=== PATIENT | female | born 1950 | race Caucasian/White ===

== ENCOUNTER 2019-06-12 11:58 | Outpatient (CLI) | payer MEDICARE, OTHER, SELFPAY ==
[2019-06-12 13:15] LABS: Abs Immature Grans 0.01 k/cumm (0.0-0.09); Absolute Basophil Count 0.01 k/cumm (0.0-0.2); Absolute Eosinophil Count 0.11 k/cumm (0.0-0.7); Absolute Lymphocyte Count 1.71 k/cumm (1.2-3.4); Absolute Monocyte Count 0.54 k/cumm (0.11-0.7); Absolute Neutrophil Count 3.24 k/cumm (1.2-6.7); Basophils % 0.2; HCT 39.9 % (36.0-46.0); HGB 13.5 g/dL (12.0-15.5); Immature Grans % 0.2; Lymphocytes % 30.4; Mean Corp. HGB Concentration 33.8 g/dL (32.0-36.0); Mean Corpuscular Hemoglobin 31.3 pg (27.0-33.0); Mean Corpuscular Volume 92.6 fL (80-95); Mean Platelet Volume 9.8 fL (8.0-11.0); Monocytes % 9.6; Neutrophils % 57.6; Platelet Count 285 x1000/uL (130-400); RBC 4.31 m/cumm (4.00-5.20); White Blood Cell Count 5.62 k/cumm (4.4-10.8)
[2019-06-12 13:39] LABS: ALT 33 U/L (12-78); AST 21 U/L (15-37); Albumin 3.6 g/dL (3.4-5.0); Alkaline Phosphatase 52 U/L (46-116); Anion Gap 7.6 mmol/L (3-11); BUN 10 mg/dL (7-18); Bilirubin, Total 0.3 mg/dL (0.2-1.0); CO2 28.4 mmol/L (21.0-32.0); CREATININE 0.71 mg/dL (0.55-1.02); Calcium 8.8 mg/dL (8.5-10.1); Chloride 106 mmol/L (98-107); Glucose 100 mg/dL (70-100); Potassium 4.2 mmol/L (3.5-5.1); Sodium 142 mmol/L (136-145); TSH 0.48 uIU/mL (0.36-3.74); Total Protein 6.3 g/dL (6.4-8.2)
[2019-06-12 14:11] LABS: ESR 4 mm/hr (0-30)
[2019-06-12 20:14] LABS: CRP, High Sensitivity 1.33 mg/L
== END 2019-06-12 12:18 ==
PROVIDERS: Nurse Practitioner Family; PCP Family Medicine; Visit Provider Family Medicine
DX: M35.3 Polymyalgia rheumatica (principal); E03.9 Hypothyroidism, unspecified; L98.9 Disorder of the skin and subcutaneous tissue, unspecified
CPT/HCPCS: 36415; 80053; 85652; 86141; 84443; 85025

== ENCOUNTER 2020-11-27 05:01 | Outpatient (CLI) | payer MEDICARE, SELFPAY ==
[2020-11-27 09:31] LABS: Abs Immature Grans 0.01 10^3/uL (0.0-0.06); Absolute Basophil Count 0.02 10^3/uL (0.0-0.2); Absolute Eosinophil Count 0.12 10^3/uL (0.0-0.7); Absolute Lymphocyte Count 1.57 10^3/uL (1.2-3.4); Absolute Monocyte Count 0.54 10^3/uL (0.1-0.8); Absolute Neutrophil Count 2.81 10^3/uL (1.2-6.7); Basophils % 0.4; Eosinophils % 2.4; HCT 42.4 % (36.0-46.0); Immature Grans % 0.2; MCH 30.7 pg (27.0-33.0); MPV 8.9 fL (8.0-11.0); Monocytes % 10.7; Neutrophils % 55.3; Nucleated RBC 0 %; Platelet Count 307 10^3/uL (130-400); RBC 4.56 10^6/uL (3.93-5.22); RDW 11.3 % (11.7-14.6); RDW-SD 38.6 fL; WBC 5.07 10^3/uL (4.4-10.8)
[2020-11-27 10:24] LABS: ALT 39 U/L (14-59); AST 26 U/L (15-37); Albumin 3.8 g/dL (3.4-5.0); Alkaline Phosphatase 66 U/L (46-116); Anion Gap 7.4 mmol/L (3-11); BUN 19 mg/dL (7-18); Bilirubin, Total 0.5 mg/dL (0.2-1.0); CO2 29.6 mmol/L (21.0-32.0); CREATININE 0.68 mg/dL (0.55-1.02); Calcium 9.3 mg/dL (8.5-10.1); Chloride 101 mmol/L (98-107); Glucose 95 mg/dL (74-106); Potassium 4.3 mmol/L (3.5-5.1); Sodium 138 mmol/L (136-145); TSH 2.14 uIU/mL (0.36-3.74); Total Protein 6.7 g/dL (6.4-8.2)
== END 2020-11-27 05:21 ==
PROVIDERS: PCP Family Medicine; Visit Provider Family Medicine
DX: E03.9 Hypothyroidism, unspecified (principal); M06.00 Rheumatoid arthritis without rheumatoid factor, unspecified site
CPT/HCPCS: 36415; 80053; 84443; 85025

== ENCOUNTER 2021-02-03 00:31 | Outpatient (CLI) | payer MEDICARE, OTHER, SELFPAY ==
--- NOTE | 2021-02-03 07:00 | DI.NM_ITS ---
APPROVED REPORT Exam: Pharmacologic stress paired with low level exercise Patient Location: Out-Patient Room/Bed: Stress Nurse: Bella Tinajero RN Ordering Provider:JING MONAHAN, Contact Number: [phone] BMI: 0 Stress Test Details Test: Pharmacologic stress was paired with low level exercise. Reason for pharmacologic stress test: LBBB. Nuclear Acquisition: Rest Tc-99m/Stress Tc-99m 1 day Rest Isotope: Tc-99m Sestamibi. Dose: 10.2 Date: 02/03/21 Injection Time: 0920 Stress Isotope: Tc-99m Sestamibi. Dose: 32.5 Date: 02/03/21 Injection Time: 1125 HR Resting HR Supine: 59 bpm Max Heart Rate (APMHR): 148 bpm Resting HR Standin bpm Target HR (85% APMHR): 125 bpm Max HR Achieved: 125 bpm % of APMHR: 84 Recovery HR: 81 bpm BP Resting BP Supine: 142/72 mmHg Resting BP Standin/76 mmHg Max BP: 150/70 mmHg Recovery BP: 148/72 mmHg ECG Resting ECG: Sinus Bradycardia, LBBB Ectopy: None Stress ECG: Sinus Tachycardia, LBBB ST Change: No significant ST segment changes noted Arrhythmia: None Recovery ECG: Sinus Rhythm, LBBB Recovery ST Change: No significant ST segment changes noted Clinical Rate Pressure Product: [id number] Stress ECG Conclusion 1. The resting electrocardiogram showed a left bundle branch block 2. The patient underwent pharmacologic stress with regadenoson, as well as slow [facility] 3. Electrocardiographically the test was nondiagnostic due to an abnormal resting electrocardiogram ( LBBB) 4. There were no dysrhythmias Stress Test Summary STAGE HR BP Symptoms NOTES Supine 59 142/72 1 min post Lexiscan injection 113 150/70 lightheaded 3 min post Lexiscan injection 88 146/68 symptoms resolved 6 min post Lexiscan injection 81 148/72 Standing 69 138/76 Lexiscan injection paired with low level of exercise (1.5mph on treadmill). MPI Conclusion There is normal myocardial perfusion, without evidence of ischemia or prior infarction Radiologist Interpretation Radiologist agrees with Method Consultant's Interpretation. Radiologist Interpretation by: Desmond Collier MD Interpretation Date/Time: 02/04/2021 14:19:59
[2021-02-03] MEDS: Regadenoson 0.4 MG/5 ML SYR IVP (11:50)
== END 2021-02-03 00:51 ==
PROVIDERS: PCP Family Medicine; Visit Provider Family Medicine
DX: R06.09 Other forms of dyspnea (principal); I44.7 Left bundle-branch block, unspecified
CPT/HCPCS: 78452; 93016; 93018; 93017; J2785

== ENCOUNTER → 2021-04-25 10:24 | Outpatient (BNVA) | payer MEDICARE, OTHER, SELFPAY | PROVIDERS: PCP Family Medicine; Referring Provider Family Medicine; Visit Provider Physical Therapy Assistant | DX: Z12.11 Encounter for screening for malignant neoplasm of colon (principal) ==

== ENCOUNTER 2021-05-19 07:13 | Day surgery (SDC) | payer MEDICARE, OTHER, SELFPAY ==
--- NOTE | 2021-05-19 06:42 | W.COLOREPORT ---
Date of service: 05/19/21 Time of Service: 08:37 Colonoscopy Report Date of procedure: 05/19/21 Pre-op diagnosis general: Colon Cancer Screening Post-op diagnosis procedure note: same Procedure: Colonoscopy Surgeon: Tiki Bailey Anesthesia Type: General:No Airway (ASA 2/Joyce Mderano, KATIE) Estimated blood loss (mL): 0 Pathology: none sent Complications: None Disposition: same day Indications: The patient is here for Colonoscopy pre-op. Her last screening was in 2010 and was unremarkable. She has no family history of colon cancer. She has not had any bowel habit changes. -Discussed colonoscopy bowel prep as well as the procedure. Discussed possible complications of the procedure to include bleeding, pain, perforation, missed small lesion/polyp, sore throat, aspiration and adverse reaction to the medications. Questions were answered to patient?s satisfaction. No guarantees were implied or given. Prep: Miralax/Dulcolax Procedure Start Time: 08:37 Procedure End Time: 08:55 Retraction Time: 8 minutes Findings: Normal colon Procedure Description: After informed consent was obtained the patient was taken to the procedure room and placed in a left decubitous position. Monitors were applied and a time out was done. The patients name, date of , procedure, allergies to medications and metal in their body was reviewed. The patient was then sedated. Once sedated and comfortable a rectal exam was done. External exam was normal. Internal exam revealed a normal sphincter tone and no palpable masses. The scope was then introduced and retro-flexed. No internal hemorrhoids, polyps or masses were identified on retro-flexion. The scope was then advanced to the cecum without difficulty. The ileocecal vlave and appendiceal orifice were identified. The prep was good. The scope was then slowly retracted over 8 minutes back into the rectum. There were no polyps identified. There was no diverticulosis noted. The scope was removed and the patient was woken up and taken back to Same day surgery in stable condition. The patient tolerated the procedure well and there were no immediate complications. Follow up: The patient should follow up as needed if they develop changes in bowel habits or other new gastrointestinal complaints.
--- NOTE | 2021-05-19 06:43 | W.PM.DSUDISC ---
Discharge Plan Disposition Patient Disposition: HOME Condition: Good Discharge Details Reason For Visit: Colonoscopy Attending Provider: Tiki Bailey Primary Care Provider: Paola Webster Home Meds and New Rx's Prescriptions: Continued magnesium glycinate 100 mg tablet 100 mg PO QHS PRNRF: 0 amitriptyline 10 mg tablet 5 - 10 mg PO HS PRN (Reason: insomnia) Qty: 30 RF: 12 timolol maleate 0.25 % drops 1 drp ophthalmic (eye) BID Qty: 5 RF: 0 vitamin B complex 1 EACH tablet 1 ea PO DAILY RF: 0 multivitamin 1 EACH capsule 1 ea PO DAILY RF: 0 omega-3 fatty acids-fish oil 1 EACH capsule 1 ea PO daily prn RF: 0 cholecalciferol (vitamin D3) 2,000 UNIT tablet 2,000 unit PO DAILY RF: 0 TUMERIC 500 mg PO DAILY RF: 0 hydroxychloroquine [Plaquenil] 200 MG tablet 300 mg PO DAILY Qty: 1.5 RF: 0 calcium carbonate 600 MG tablet 2,000 mg PO DAILY RF: 0 levothyroxine 100 mcg tablet 100 mcg PO DAILY Qty: 90 RF: 1 raloxifene [Evista] 60 mg tablet 60 mg PO DAILY Qty: 30 RF: 12 Discontinued bisacodyl [Dulcolax (bisacodyl)] 5 mg tablet,delayed release (DR/EC) 5 mg PO ONCE Qty: 4 RF: 0 polyethylene glycol 3350 17 gram/dose powder 238 g PO ONCE Qty: 238 RF: 0 Discharge Instructions Additional Instructions: Findings:Normal colonoscopy Follow up: as needed Please call if you develop: fevers >101.5 Nausea or Vomiting Abdominal pain that is not transient Rectal bleeding that is more then a tbsp A hard abdomen and inability to pass gas DAY SURGERY UNIT POST ENDOSCOPY INSTRUCTIONS Instructions for everyone who is given Anesthesia: For your safety, please do the following for the next 24 Hours: a. Do not drive or operate dangerous equipment b. Do not drink alcohol beverages or use any recreational drugs for the first 24 hours or while taking pain medications. The medications in your body may have a reaction that can be dangerous. c. Do not make any important decisions or sign any important papers 1. Generally there are no restrictions on your activity after a day or so has gone by, but you may feel a bit fatigued for a few days. 2. After you arrive home you may have a light meal and return to a normal diet as you can tolerate it without feeling sick to your stomach. 3. After surgery, you may feel pain or discomfort. This should be only transient, but if it persists please contact your doctor. 4. If there are any questions regarding the findings of your procedure, please feel free to contact your doctor. 6. If you are unable to contact your doctor with a problem, contact the hospital at [phone]. 7. Continue all your regular medications unless directed otherwise. I understand the above instructions and have no questions. Signature of Patient or Responsible Adult Escort Date/Time Name of Responsible Adult Escort Signature of Nurse Date/Time Activity:: Activity as Tolerated Diet:: As Tolerated Discharge Orders Discharge Orders: Discharge Order (Routine); Ordered 05/19/21 Ordered By: Tiki Bailey
[2021-05-19 07:23] VITALS: BP 127/54; PULSE 59; RESP 16; TEMP 36.6; O2SAT 100
--- NOTE | 2021-05-19 07:43 | ANES.PREOP_ITS ---
General Info Date of Service Date Performed: 05/19/21 Height: 5 ft 3.39 in Weight: 50.9 kg Body Mass Index (BMI): 19.6 Surgical Procedure: Operation Date: 05/19/21 08:35 Proposed Procedures Side Surgeon p Colonoscopy Tiki Bailey MD Meds Allergies and Home Medications Allergies Allergy/AdvReac Type Severity Reaction Status Date / Time No Known Allergies Allergy Unverified 04/25/21 10:28 Home Medication Medication Instructions Recorded multivitamin 1 ea PO DAILY 06/20/13 omega-3 fatty acids-fish oil 1 ea PO daily prn 06/20/13 vitamin B complex 1 ea PO DAILY 06/20/13 Tumeric 500 mg PO DAILY 06/08/16 cholecalciferol (vitamin D3) 2,000 unit PO DAILY 06/08/16 hydroxychloroquine [Plaquenil] 300 mg PO DAILY #1.5 tab-cap 06/07/17 calcium carbonate 2,000 mg PO DAILY 01/05/18 magnesium glycinate 100 mg tablet 100 mg PO QHS PRN tab 02/08/19 amitriptyline 10 mg tablet 5 - 10 mg PO HS PRN #30 tab-cap 01/15/21 timolol maleate 0.25 % eye drops 1 drp OPHTHALMIC (EYE) BID #5 ml 01/15/21 levothyroxine 100 mcg tablet 100 mcg PO DAILY #90 tab-cap 04/02/21 bisacodyl 5 mg tablet,delayed 5 mg PO ONCE #4 tab 04/25/21 release polyethylene glycol 3350 17 238 g PO ONCE #238 g 04/25/21 gram/dose oral powder raloxifene 60 mg tablet 60 mg PO DAILY #30 tab-cap 05/05/21 Current Visit Medications: Current Medications Generic Name Dose Route Start Last Admin Trade Name Freq PRN Reason Stop Dose Admin Hyoscyamine Sulfate 0.125 mg 05/19/21 06:43 Hyoscyamine 0.125 Mg Sl/Oral/Chew SL DIRECTED PRN Ringer's Solution 1,000 mls @ 80 mls/hr 05/19/21 06:00 IV 06/15/21 23:59 INFUSION JOSE IV Miscellaneous Supplies 1 each 05/19/21 06:00 Iv Access IV 06/15/21 23:59 DIRECTED JOSE Ondansetron HCl 4 mg 06/28/21 06:43 Ondansetron 4 Mg/2 Ml Vial IVP Q4H PRN PRN Nausea / Vomiting Sodium Chloride 0 ml 05/19/21 06:00 Normal Saline Flush 10 Ml Syr IV 06/15/21 23:59 PRN PRN Sodium Chloride 0 ml 05/19/21 06:00 Normal Saline 10 Ml Vial IJ 06/15/21 23:59 DIRECTED PRN Sterile Water 0 ml 05/19/21 06:00 Water,Injection,Sterile 10 Ml Vial IJ 06/15/21 23:59 DIRECTED PRN PFSH Active Problems Active Problems: Problem Status Onset Code Hypothyroidism 06/21/13 E03.9 Polymyalgia rheumatica 01/09/13 M35.3 Osteoporosis 06/08/16 M81.0 Meniere's disease H81.09 Rheumatoid arthritis with negative rheumatoid factor M06.00 Contact dermatitis L25.9 Sensorineural hearing loss 04/28/16 H90.5 Osteopenia M85.80 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 Styles 2016: Prednisone (Methotrexate d/c no result Leflunomide d/c elevated LFTs) Post-operative nausea and vomiting Rheumatoid arthritis with negative rheumatoid factor Surgical History Surgical History History of colonoscopy Tobacco Smoking/Tobacco Use Status: Never Second hand exposure: Yes Alcohol Alcohol Intake: never Substance Use Substance use: Never Substance use type: does not use Vital Signs and Lab Results Vital Signs Most Recent Vital Signs in EMR: Most Recent Vital Signs Temp Pulse Resp BP Pulse Ox 36.6 C 59 L 16 127/54 L 100 05/19/21 07:23 05/19/21 07:23 05/19/21 07:23 05/19/21 07:23 05/19/21 07:23 Lab Results Blood Type / Crossmatch: No Data to Display Complete Blood Count: No Data to Display Complete Metabolic Panel: No Data to Display Liver Function Panel: No Data to Display Coagulation Panel: No Data to Display Cardiac Panel: No Data to Display Arterial Blood Gas: No Data to Display Venous Blood Gas: No Data to Display Pancreas Panel: No Data to Display Thyroid Panel: No Data to Display Infectious Disease: No Data to Display Blood Cultures: No Data to Display Toxicology Panel: No Data to Display Imaging and Studies Imaging and Studies Stress Test Summary: Stress ECG Conclusion 1. The resting electrocardiogram showed a left bundle branch block 2. The patient underwent pharmacologic stress with regadenoson, as well as slow ambulation on the treadmill 3. Electrocardiographically the test was nondiagnostic due to an abnormal resting electrocardiogram (LBBB) 4. There were no dysrhythmias 02/09 Echocardiogram Summary: Summary: 1. Left ventricle: The cavity size was normal. Wall thickness was normal. Systolic function was normal. The estimated ejection fraction was 60-65%. Wall motion was normal; there were no regional wall motion abnormalities. Left ventricular diastolic function parameters were normal. 2. Mitral valve: Mild regurgitation. 3. Right ventricle: The cavity size was normal. Wall thickness was normal. Systolic function was normal. 4. Pulmonary arteries: Pulmonary systolic pressure was in the range of 15mm Hg to 25mm Hg. 5. Inferior vena cava: The vessel was normal in size; the respirophasic diameter changes were in the normal range (greater than or equal to 50%); findings are consistent with normal central venous pressure.02/09 Anesthesia Assessment and Plan Anesthesia History Personal History: No History of Anesthesia Complications Family History: No Family History of Anesthesia Complications Exercise Tolerance Exercise Tolerance: Metabolic Equivalents<4 Pertinent Negatives Pertinent Negatives: No Symptoms of GERD, No Major Cardiovascular Symptoms or Complaints and No Major Pulmonary Symptoms or Complaints Cardiac & Pulmonary Exam Cardiac Exam: Normal S1/S2 Heart Sounds Pulmonary Exam: Clear Bilateral Breath Sounds Cardiac and Pulmonary Comment:: Echo and stress rest essentially negative Airway Exam Known Difficult Airway: No Mallampati Class: 2 Mouth Opening: Normal (> 3cm) Thyromental Distance: Greater than 3 cm Neck Range of Motion: Full ROM Neck Circumference: Normal Teeth Condition: Normal Dentition ASA Classification ASA Score: ASA 2 Emergency Case?: No NPO Status NPO Status: NPO Clears >2 hours, Solids >8 hours Anesthesia Plan Resuscitation Status: Full Code Anesthesia Technique: MAC Anesthesia Airway Planned: Natural Airway Monitors Used: Standard Monitors
[2021-05-19] MEDS: Lactated Ringers 1,000 ML 80 ML IV (08:02)
[2021-05-19 08:21] VITALS: BMI 19.6
[2021-05-19 09:08] VITALS: BP 93/45; PULSE 53; RESP 15; TEMP 36.5; O2SAT 98
--- NOTE | 2021-05-19 09:08 | W.ANESPOSTOP ---
Postoperative Evaluation Date, Time and Location Date Performed: 05/19/21 Time Performed: 09:08 Patient Location: Day Surgery Unit Vital Signs Most Recent Imported Vital Signs: Most Recent Vital Signs Temp Pulse Resp BP Pulse Ox 36.6 C 59 L 16 127/54 L 100 05/19/21 07:23 05/19/21 07:23 05/19/21 07:23 05/19/21 07:23 05/19/21 07:23 Most Recent Manually Entered Vital Signs: Adult Blood Pressure: 93/45 Heart Rate: 53 Respirations: 15 Oxygen Saturation (%): 98 Temperature (C): 36.5 C Pain Score (0-10 Scale): 0 Pain Score Most Recent Pain Score: Most Recent Pain Score Pain Level 0 05/19/21 07:23 Assessment Mental Status: Awake (Alert & Oriented to Patient Baseline) Airway and Respiratory Function: Patent airway with normal (patient baseline) respiratory exam Cardiovascular Function: Hemodynamically Stable Hydration Status: Adequately Hydrated Nausea & Vomiting: No Nausea or Vomiting Pain: Pt. Denies Any Pain Peripheral Nerve Block: Patient did not receive a nerve block
[2021-05-19 09:11] VITALS: PULSE 53; RESP 15; TEMPC 36.5; O2SAT 98
[2021-05-19 09:12] VITALS: BP 93/45
[2021-05-19 09:39] VITALS: BP 93/45; PULSE 53; RESP 15; TEMP 36.5; O2SAT 98
== END 2021-05-19 09:50 | disposition home or self-care (01) ==
LOC: SUR 07:13
PROVIDERS: PCP Family Medicine; Visit Provider Surgery
PROC: 0DJD8ZZ Inspection of Lower Intestinal Tract, Via Natural or Artificial Opening Endoscopic (ICD-10-PCS; CPT 45378; principal; 2021-05-19 08:30)
DX: Z12.11 Encounter for screening for malignant neoplasm of colon (principal)
CPT/HCPCS: G0121

== ENCOUNTER 2022-04-09 09:26 | Outpatient (CLI) | payer MEDICARE, OTHER, SELFPAY ==
[2022-04-09 12:25] VITALS: BP 140/66; PULSE 75; RESP 16; TEMP 36.9; O2SAT 100
[2022-04-09 13:28] VITALS: BP 143/62; PULSE 62; RESP 12; TEMP 36.9; O2SAT 98
== END 2022-04-09 09:27 | disposition home or self-care (01) ==
LOC: INF 09:31
PROVIDERS: PCP Family Medicine; Visit Provider Family Medicine
DX: U07.1 COVID-19 (principal)
CPT/HCPCS: 96374; Q0222

== ENCOUNTER 2022-08-14 00:44 | Outpatient (CLI) | payer MEDICARE, OTHER, SELFPAY ==
[2022-08-14 13:00] LABS: Abs Immature Grans 0.01 10^3/uL (0.0-0.06); Absolute Basophil Count 0.04 10^3/uL (0.0-0.2); Absolute Eosinophil Count 0.11 10^3/uL (0.0-0.7); Absolute Lymphocyte Count 1.65 10^3/uL (1.2-3.4); Absolute Monocyte Count 0.42 10^3/uL (0.1-0.8); Absolute Neutrophil Count 2.96 10^3/uL (1.2-6.7); Basophils % 0.8; Eosinophils % 2.1; HCT 42.6 % (36.0-46.0); HGB 14.3 g/dL (11.2-15.7); Immature Grans % 0.2; Lymphocytes % 31.8; MCH 30.6 pg (27.0-33.0); MCHC 33.6 % (32.0-36.0); MCV 91 fL (80-95); MPV 9.6 fL (8.0-11.0); Monocytes % 8.1; Platelet Count 300 10^3/uL (130-400); RBC 4.67 10^6/uL (3.93-5.22); RDW 12.1 % (11.7-14.6); RDW-SD 40.8 fL; WBC 5.19 10^3/uL (4.4-10.8)
[2022-08-14 13:29] LABS: ALT 39 U/L (14-59); AST 30 U/L (15-37); Albumin 3.9 g/dL (3.4-5.0); Alkaline Phosphatase 58 U/L (46-116); Anion Gap 6.8 mmol/L (3-11); BUN 19 mg/dL (7-18); Bilirubin, Total 0.4 mg/dL (0.2-1.0); CO2 30.2 mmol/L (21.0-32.0); CREATININE 0.7 mg/dL (0.55-1.02); Calcium 9.2 mg/dL (8.5-10.1); Calculated LDL 58 mg/dL (<100); Chloride 101 mmol/L (98-107); Cholesterol 157 mg/dL (<200); Estimated GFR 91.26 (mL/min/1.73m2); Glucose 92 mg/dL (74-106); HDL Cholesterol 90 mg/dL (40-60); Potassium 4.4 mmol/L (3.5-5.1); Sodium 138 mmol/L (136-145); TSH (W/Ref FT4) 1.78 uIU/mL (0.36-3.74); Total Protein 7.1 g/dL (6.4-8.2); Triglyceride 48 mg/dL (<150)
== END 2022-08-14 00:45 | disposition home or self-care (01) ==
LOC: LOS 00:44
PROVIDERS: PCP Family Medicine; Visit Provider Family Medicine
DX: E03.9 Hypothyroidism, unspecified (principal); Z13.6 Encounter for screening for cardiovascular disorders; M06.00 Rheumatoid arthritis without rheumatoid factor, unspecified site; Z00.00 Encounter for general adult medical examination without abnormal findings
CPT/HCPCS: 36415; 80053; 80061; 84443; 85025

== ENCOUNTER 2023-08-27 02:37 | Outpatient (CLI) | payer MEDICARE, OTHER, SELFPAY | END 2023-08-27 02:38 | disposition home or self-care (01) | LOC: LBO 02:37 | PROVIDERS: PCP Family Medicine; Visit Provider Family Medicine | DX: E03.9 Hypothyroidism, unspecified (principal) | CPT/HCPCS: 36415; 84443 ==

== ENCOUNTER 2024-08-29 03:14 | Outpatient (CLI) | payer MEDICARE, OTHER, SELFPAY ==
[2024-08-29 13:48] LABS: Abs Immature Grans 0.02 10^3/uL (0.0-0.06); Absolute Basophil Count 0.03 10^3/uL (0.0-0.2); Absolute Eosinophil Count 0.09 10^3/uL (0.0-0.7); Absolute Lymphocyte Count 1.67 10^3/uL (1.2-3.4); Absolute Monocyte Count 0.49 10^3/uL (0.1-0.8); Basophils % 0.6 %; Eosinophils % 1.7 %; HCT 41.8 % (36.0-46.0); HGB 14.2 g/dL (11.2-15.7); Immature Grans % 0.4 %; Lymphocytes % 32.1 %; MCH 31.2 pg (27.0-33.0); MCV 92 fL (80-95); MPV 8.9 fL (8.0-11.0); Monocytes % 9.4 %; Neutrophils % 55.8 %; Platelet Count 279 10^3/uL (130-400); RBC 4.55 10^6/uL (3.93-5.22); RDW 11.4 % (11.7-14.6); RDW-SD 38.7 fL
[2024-08-29 13:51] LABS: ESR < 1 mm/hr (0-30)
[2024-08-29 14:03] LABS: C-Reactive Protein < 0.50 mg/dL (<or=0.5)
[2024-08-29 14:33] LABS: ALT 41 U/L (14-59); AST 22 U/L (15-37); Albumin 3.8 g/dL (3.4-5.0); Alkaline Phosphatase 69 U/L (46-116); Anion Gap 6.5 mmol/L (3-11); BUN 15 mg/dL (7-18); Bilirubin, Total 0.54 mg/dL (0.2-1.0); CO2 30.5 mmol/L (21.0-32.0); CREATININE 0.8 mg/dL (0.55-1.02); Calcium 9.2 mg/dL (8.5-10.1); Chloride 103 mmol/L (98-107); Estimated GFR 76.79 (mL/min/1.73m2); Glucose 93 mg/dL (74-106); Potassium 4.6 mmol/L (3.5-5.1); Sodium 140 mmol/L (136-145); TSH (W/Ref FT4) 1.55 uIU/mL (0.36-3.74); Total Protein 6.8 g/dL (6.4-8.2); Vitamin B12 1131 pg/mL (193-986)
== END 2024-08-29 03:15 | disposition home or self-care (01) ==
LOC: LBO 03:14
PROVIDERS: PCP Family Medicine; Visit Provider Family Medicine
DX: G31.84 Mild cognitive impairment of uncertain or unknown etiology; E03.9 Hypothyroidism, unspecified; M06.00 Rheumatoid arthritis without rheumatoid factor, unspecified site
CPT/HCPCS: 36415; 80053; 85652; 82607; 84443; 85025; 86140

== ENCOUNTER 2024-09-25 01:21 | Outpatient (CLI) | payer MEDICARE, OTHER, SELFPAY ==
--- NOTE | 2024-09-25 | DI.DEXA_ITS ---
Exam(s) XR DEXA BONE DENSITY W/WO ROBERT EXAM: XR DEXA BONE DENSITY W/WO ROBERT CLINICAL HISTORY: OSTEOPOROSIS, UNSPECIFIED PATHOLOGICAL FRACTURE PRESENCE, M81.0 TECHNIQUE: COMPARISON: CR XR LUMBAR SPINE AP, LAT from 08/08/2020 FINDINGS: Lateral Spine Image: There is again seen anterolisthesis of L4 on L5. No compression deformities are seen on the single lateral image of the spine. Left hip: Total T-Score: -1.5 Total Z-Score: 0.3 T- and Z-scores: Findings are consistent with osteopenia. Lumbar Spine: Total T-Score: -0.2 Total Z-Score: 2.3 T- and Z-scores: Within normal limits. IMPRESSION: No evidence of osteoporosis.
== END 2024-09-25 01:41 ==
LOC: DI 01:21
PROVIDERS: PCP Family Medicine; Visit Provider Internal Medicine
DX: M81.0 Age-related osteoporosis without current pathological fracture (principal)
CPT/HCPCS: 77080

== ENCOUNTER → 2024-10-05 14:28 | Outpatient (BNVA) | payer MEDICARE, OTHER, SELFPAY | PROVIDERS: PCP Family Medicine; Referring Provider Family Medicine; Visit Provider Nurse Practitioner Adult Health | DX: G31.84 Mild cognitive impairment of uncertain or unknown etiology (principal) | CPT/HCPCS: 99205; G2212 ==

== ENCOUNTER 2025-02-08 01:00 | Outpatient (CLI) | payer MEDICARE, OTHER, SELFPAY ==
--- NOTE | 2025-02-08 07:30 | DI.RAD_ITS ---
Exam(s) XR FOOT RT COMPLETE EXAM: XR FOOT RT COMPLETE CLINICAL HISTORY: right foot pain,m79.671. TECHNIQUE: 2D digital imaging was performed. Three views. COMPARISON: CR XR FOOT LT COMPLETE from 02/08/2025 FINDINGS: BONES: No acute fracture is present. No bony destructive lesion is seen. Spurring at the Achilles in sertion on the calcaneus. JOINTS: No dislocation present. Mild spurring at the talonavicular joint. Mild degenerative changes of the 1st MTP joint and 1st metatarsal sesamoids. SOFT TISSUE: Normal. IMPRESSION: Unre mild degenerative changes and calcaneal enthesophyte. DATA REPOSITORY: RADIATION DOSE DELIVERED:
--- NOTE | 2025-02-08 07:30 | DI.RAD_ITS ---
Exam(s) XR FOOT LT COMPLETE EXAM: XR FOOT LT COMPLETE CLINICAL HISTORY: Left foot pain,m79.672. TECHNIQUE: 2D digital imaging was performed of the left foot. Three images were obtained. AP, obli que and lateral views were obtained. COMPARISON: There are no priors for comparison. FINDINGS: BONES: No acute fracture is present. No bony destructive lesion is seen. There is a enthesophyte at t he posterior calcaneus. JOINTS: No dislocation present. There is a mild hallux valgus deformity. The joint spaces are well m aintained. SOFT TISSUE: Normal. IMPRESSION: Mild hallux valgus deformity and calcaneal spur. DATA REPOSITORY: RADIATION DOSE DELIVERED:
== END 2025-02-08 01:20 ==
LOC: DI 01:00
PROVIDERS: PCP Family Medicine; Visit Provider Podiatrist
DX: M79.671 Pain in right foot (principal); M79.672 Pain in left foot; M20.12 Hallux valgus (acquired), left foot; M20.11 Hallux valgus (acquired), right foot; M77.32 Calcaneal spur, left foot; M77.31 Calcaneal spur, right foot; M77.42 Metatarsalgia, left foot; B07.0 Plantar wart; M67.01 Short Achilles tendon (acquired), right ankle; M67.02 Short Achilles tendon (acquired), left ankle
CPT/HCPCS: 17110; 29540; 99214; 73630

== ENCOUNTER → 2025-03-22 12:51 | Outpatient (BNVA) | payer MEDICARE, OTHER, SELFPAY | PROVIDERS: PCP Family Medicine; Referring Provider Family Medicine; Visit Provider Podiatrist | DX: B07.0 Plantar wart (principal); M67.01 Short Achilles tendon (acquired), right ankle; M67.02 Short Achilles tendon (acquired), left ankle; M77.42 Metatarsalgia, left foot; Q66.71 Congenital pes cavus, right foot; Q66.72 Congenital pes cavus, left foot | CPT/HCPCS: 17110 ==

== ENCOUNTER → 2025-04-09 12:25 | Outpatient (BNVA) | payer MEDICARE, OTHER, SELFPAY | PROVIDERS: PCP Family Medicine; Referring Provider Family Medicine; Visit Provider Nurse Practitioner Adult Health | DX: G31.84 Mild cognitive impairment of uncertain or unknown etiology (principal) | CPT/HCPCS: 99215 ==

== ENCOUNTER → 2025-10-12 02:43 | Outpatient (CLI) | payer MEDICARE, OTHER, SELFPAY ==
--- NOTE | 2025-10-12 11:50 | DI.MAMMO_ITS ---
Exam(s) MAMMO SCREENING EXAM: MAMMO SCREENING CLINICAL HISTORY: screening,Z12.39 TECHNIQUE: Mammograms were interpreted according to the usual protocol including computer analysis with CAD system, tomosynthesis and C-view imaging. COMPARISON: 2017 through 2023 FINDINGS: The breasts are composed of heterogeneously dense fibroglandular densities, Breast Density category C. No suspicious masses or suspicious microcalcifications are seen. No skin thickening or abnormal axillary lymph nodes are seen. There has been no significant change from prior exams. IMPRESSION: BI-RADS Category 1, Negative mammogram. Yearly screening mammography is recommended. Breast Density: Category C - The breasts are heterogeneously dense, which may obscure small masses. Breast density Category C or D implies that the patient has dense breast tissue. Dense breast tissue can make it harder to find cancer on a mammogram. Dense breast tissue is also associated with an increased risk of breast cancer. This information about the result of the mammogram report was provided to the patient to raise their awareness. Use this report when you speak with the patient about their risks for breast cancer, which includes their family history. At that time, you may recommend additional screening tests (Ultrasound or MRI) as these tests may add significant information. A negative radiographic report should not delay biopsy if a dominant or clinically suspicious mass is present. Up to ten percent of cancers are not identified on mammography. A negative report may reinforce clinical impression. Adenosis and dense breasts may obscure an underlying neoplasm. False positive reports average 6 to 10%.
== END ==
LOC: DI 02:43
PROVIDERS: PCP Family Medicine; Visit Provider Family Medicine
DX: Z12.31 Encounter for screening mammogram for malignant neoplasm of breast (principal); R92.323 Mammographic fibroglandular density, bilateral breasts; R92.333 Mammographic heterogeneous density, bilateral breasts
CPT/HCPCS: 77063; 77067